=== PATIENT | male | born 1985 | race Caucasian/White ===

== ENCOUNTER 2019-10-22 16:01 | Emergency (ER) | payer OTHER ==
[2019-10-22 16:09] VITALS: BP 124/79; PULSE 74; TEMP 98; BMI 37.2
--- NOTE | 2019-10-22 17:03 | PDOC ---
History of Present Illness - General Chief Complaint: Pain Stated Complaint: FOOT PAIN History Source: Patient Exam Limitations: No Limitations - History of Present Illness Initial Comments: 10/22/19 16:55 Patient is a 34-year-old male with no past medical history here with complaint of right ankle pain x1 month. Patient states he was walking when he twisted the ankle. States since then he is had decreased range of motion and pain with ambulation across the anterior aspect of the foot and ankle. States it has improved since the injury but he still has pain. Patient here requesting a CAT scan of his head, after head injury 1 week ago. States that he occasionally gets a little headache. Also requesting refill of his asthma meds. PMD: Dr. Blunt PMHX: asthma PSOCHX: neg cig, occ etoh, (+) MJ ALL: NKDA GENERAL/CONSTITUTIONAL: [No fever or chills. No weakness. No weight change.] HEAD, EYES, EARS, NOSE AND THROAT: [No change in vision. No ear pain or discharge. No sore throat.] CARDIOVASCULAR: [No chest pain or shortness of breath.] RESPIRATORY: [No cough, wheezing, or hemoptysis.] GASTROINTESTINAL: [No nausea, vomiting, diarrhea or constipation. No rectal bleeding.] GENITOURINARY: [No dysuria, frequency, or change in urination.] MUSCULOSKELETAL: [(+) joint or muscle swelling or pain. No neck or back pain.] SKIN AND BREASTS: [No rash or easy bruising.] NEUROLOGIC: [(+) headache, vertigo, loss of consciousness, or loss of sensation.] PSYCHIATRIC: [No depression or anxiety.] ENDOCRINE: [No increased thirst. No abnormal weight change.] HEMATOLOGIC/LYMPHATIC: [No anemia, easy bleeding, or history of blood clots.] ALLERGIC/IMMUNOLOGIC: [No hives or skin allergy. No latex allergy.] GENERAL: [The patient is awake, alert, and fully oriented, in no acute distress.] HEAD: [Normal with no signs of trauma.] EYES: [Pupils equal, round and reactive to light, extraocular movements intact, sclera anicteric, conjunctiva clear.] ENT: [Ears normal, nares patent, oropharynx clear without exudates. Moist mucous membranes.] NECK: [Normal range of motion, supple without lymphadenopathy, JVD, or masses.] LUNGS: [Breath sounds equal, clear to auscultation bilaterally. No wheezes, and no crackles.] HEART: [Regular rate and rhythm, normal S1 and S2 without murmur, rub.] ABDOMEN: [Soft, nontender, normoactive bowel sounds. No guarding, no rebound. No masses.] EXTREMITIES: [Normal range of motion, no edema, now swelling, pulses intact. No clubbing or cyanosis. No cords, erythema, or tenderness.] NEUROLOGICAL: [Cranial nerves II through XII grossly intact. Normal speech, n ormal gait.] PSYCH: [Normal mood, normal affect.] SKIN: [Warm, Dry, normal turgor, no rashes or lesions noted.] Past History - Medical History Allergies/Adverse Reactions: Allergies Allergy/AdvReac Type Severity Reaction Status Date / Time No Known Allergies Allergy Verified 10/22/19 16:17 Home Medications: Ambulatory Orders Albuterol 0.083% Nebulizer Kelsy [Ventolin 0.083% Nebulizer Soln -] 1 neb NEB Q4H #1 box 10/22/19 Albuterol Sulfate Inhaler - [Ventolin HFA Inhaler -] 1 - 2 inh PO Q4H #1 inhaler 10/22/19 Fluticasone/Salmeterol [Advair 250-50 Diskus] 1 each IH DAILY #1 box 10/22/19 Asthma: Yes COPD: No - Psycho-Social/Smoking History Smoking History: Never smoked - Substance Abuse Hx (Audit-C & DAST Scrn) How often the patient has a drink containing alcohol: Monthly or less Score: In Men: 4 or > Positive; In Women: 3 or > Positive: 1 Screen Result (Pos requires Nsg. Audit-10AR): Negative *Physical Exam - Vital Signs Last Vital Signs Temp Pulse Resp BP Pulse Ox 98 F 74 20 124/79 97 10/22/19 16:05 10/22/19 16:05 10/22/19 16:05 10/22/19 16:05 10/22/19 16:05 ED Treatment Course - RADIOLOGY Radiology Studies Ordered: Category Date Time Status ANKLE & FOOT-RIGHT* [RAD] Stat Radiology 10/22/19 16:39 Taken Medical Decision Making - Medical Decision Making 10/22/19 16:55 Patient is a 34-year-old male with no past medical history here with complaint of right ankle pain x1 month. Patient states he was walking when he twisted the ankle. States since then he is had decreased range of motion and pain with ambulation across the anterior aspect of the foot and ankle. States it has improved since the injury but he still has pain. Patient here requesting a CAT scan of his head, after head injury 1 week ago. States that he occasionally gets a little headache. Also requesting refill of his asthma meds. Patient has sprained ankle which is improving however will get x-ray to rule out fracture.. Patient also has headaches post head injury 1 week ago. He is neurologically intact. Reassured patient that there is no need for CT scan at this time. Will refill medications. X-ray foot and ankle right: Cortical thickening to the distal tibia and fibula, no acute fracture I discussed the physical exam findings, ancillary test results and final diagnoses with the patient. I answered all of the patient's questions. The patient was satisfied with the care received and felt comfortable with the discharge plan and treatment plan. The Patient agrees to follow up with the primary care physician within 24-72 hours. Discharge - Discharge Information Problems reviewed: Yes Clinical Impression/Diagnosis: Medication refill, Post-concussion headache Right ankle sprain Qualifiers: Encounter type: initial encounter Involved ligament of ankle: other ligament Qualified Code(s): S93.491A - Sprain of other ligament of right ankle, initial encounter Condition: Stable Disposition: HOME - Additional Discharge Information Prescriptions: Fluticasone/Salmeterol [Advair 250-50 Diskus] 1 each IH DAILY #1 box Albuterol 0.083% Nebulizer Kelsy [Ventolin 0.083% Nebulizer Soln -] 1 neb NEB Q4H #1 box Albuterol Sulfate Inhaler - [Ventolin HFA Inhaler -] 1 - 2 inh PO Q4H #1 inhaler - Follow up/Referral Referrals: Harpal Au MD [Primary Care Provider] - Darío Beckford MD [Staff Physician] - Micky Vilchis MD [Staff Physician] - - Patient Discharge Instructions Patient Printed Discharge Instructions: DI for Ankle Sprain, DI for Post- traumatic Headache Additional Instructions: Follow-up with your primary care doctor in 1 to 2 days. You must also follow-up with the neurologist about the headaches. You must follow-up with orthopedics for your ankle pain and for irregularity found on your right distal tibia and fibula. Continue Dustin bandage to the ankle. Return to the emergency room for worsening symptoms. - Post Discharge Activity Work/Back to School Note: Back to Work
== END 2019-10-22 17:28 | disposition home or self-care (01) ==
LOC: JER 16:01
DX: S93.491A Sprain of other ligament of right ankle, initial encounter (principal); G44.309 Post-traumatic headache, unspecified, not intractable
CPT/HCPCS: 73610-TC-RT-FY; 73630-TC-RT-FY; 99283-25

== ENCOUNTER 2022-02-03 11:39 | Emergency (ER) | payer OTHER ==
[2022-02-03 11:52] VITALS: BP 111/70; PULSE 101; RESP 20; TEMP 97.7; BMI 37.2
[2022-02-03] MEDS ORDERED: DEXAMETHASONE SOD PHOSPHATE 10 MG/1 ML VIAL PO ONE (12:46)
[2022-02-03] MEDS ORDERED: DEXAMETHASONE SOD PHOSPHATE 10 MG/1 ML VIAL ONE (14:07)
[2022-02-03] MEDS: ALBUTEROL SO4 2.5/IPRATROPIUM 0.5 INH SOL 3 ML VIAL.NEB. NEB SCH ×2 (14:17→14:47)
[2022-02-03] MEDS ORDERED: ALBUTEROL SO4 2.5/IPRATROPIUM 0.5 INH SOL 3 ML VIAL.NEB. NEB ONE (14:18)
== END 2022-02-03 17:06 | disposition home or self-care (01) ==
LOC: JER 11:39
PROC: 3E0F7GC Introduction of Other Therapeutic Substance into Respiratory Tract, Via Natural or Artificial Opening (ICD-10-PCS; principal; 2022-02-03)
DX: J32.9 Chronic sinusitis, unspecified (principal)
CPT/HCPCS: 99284-25; J1100

== ENCOUNTER 2022-03-28 13:12 | Emergency (ER) | payer OTHER ==
[2022-03-28 13:17] VITALS: BP 131/83; PULSE 114; RESP 18; TEMP 100.4; BMI 34.7
[2022-03-28] MEDS ORDERED: ACETAMINOPHEN 500 MG TABLET (FP) PO ONE (13:30)
[2022-03-28] MEDS ORDERED: ACETAMINOPHEN 500 MG TABLET (FP) ONE (13:31)
[2022-03-28] MEDS ORDERED: DEXAMETHASONE 4 MG TABLET (FP) PO ONE (14:29)
[2022-03-28] MEDS ORDERED: PSEUDOEPHEDRINE HCL 30 MG TABLET PO ONE (14:32)
[2022-03-28] MEDS ORDERED: AMOX TR/POT CLAV 875MG/125MG TABLETS (FP) PO ONE (14:39)
[2022-03-28] MEDS ORDERED: AMOX TR/POT CLAV 875MG/125MG TABLETS (FP) ONE (14:55)
[2022-03-28] MEDS ORDERED: DEXAMETHASONE SOD PHOSPHATE 10 MG/1 ML VIAL ONE (14:55)
[2022-03-28] MEDS ORDERED: ALBUTEROL SO4 2.5/IPRATROPIUM 0.5 INH SOL 3 ML VIAL.NEB. NEB ONE ×2 (14:55→14:57)
[2022-03-28] MEDS ORDERED: PSEUDOEPHEDRINE HCL 60 MG TABLET ONE (14:57)
[2022-03-28] MEDS: ALBUTEROL SO4 2.5/IPRATROPIUM 0.5 INH SOL 3 ML VIAL.NEB. NEB SCH ×2 (15:40→15:41)
== END 2022-03-28 17:40 | disposition home or self-care (01) ==
LOC: JER 13:12
PROC: 3E0F7GC Introduction of Other Therapeutic Substance into Respiratory Tract, Via Natural or Artificial Opening (ICD-10-PCS; principal; 2022-03-28)
DX: J45.21 Mild intermittent asthma with (acute) exacerbation (principal); J11.1 Influenza due to unidentified influenza virus with other respiratory manifestations
CPT/HCPCS: 0241U-QW; 71046-TC-FY; 99284-25